=== PATIENT | male | born 1990 | race Caucasian/White ===

== ENCOUNTER 2018-11-22 22:05 | Emergency (ER) | payer OTHER ==
[~2018-11-22] VITALS: Ht 177.8 cm; Wt 102.1 kg
--- NOTE | 2018-11-22 22:05 | NUR ---
PATIENT COMES IN BY EMS GROUND WITH PD AT BEDSIDE. NOT COOPERATING AND COVERED IN VOMIT AND URINE.
[2018-11-22 22:08] VITALS: BP 132/70
--- NOTE | 2018-11-22 22:20 | NUR ---
PATIENT RESTLESS. WET PANTS REMOVED. DRY GOWN AND BLANKETS APPLIED
[2018-11-22 22:23] LABS: ABSOLUTE NEUTROPHILS 3.6 thou/uL (1.4-8.2); BASOPHILS 0.9 % (0.0-2.0); EOSINOPHILS 2.8 % (0.0-3.0); HEMATOCRIT 52.5 % (42.0-52.0); HEMOGLOBIN 17.7 gm/dL (14.0-18.0); LYMPHOCYTES 41.1 % (24.0-44.0); MCH 31.2 pg (26.0-34.0); MCHC 33.8 g/dL (28.0-37.0); MCV 92.3 fL (80.0-100.0); PLATELET COUNT 155 thou/uL (150-400); POLYS 46.2 % (36.0-66.0); RBC 5.68 mil/uL (4.50-6.00); RDW 14.9 % (10.5-14.5); WBC 7.7 thou/uL (4.0-11.0)
[2018-11-22 22:32] LABS: CALCIUM 8.6 mg/dL (8.5-10.1); CREATININE 1.2 mg/dL (0.7-1.3); POTASSIUM 3.9 mmol/L (3.5-5.1)
--- NOTE | 2018-11-22 22:51 | NUR ---
U-BAG PLACED ON PATIENT FOR URINE COLLECTION
[2018-11-22 22:57] LABS: LARGE PLATELETS OCCASIONAL
--- NOTE | 2018-11-22 22:59 | NUR ---
PATIENT TO CT WITH SECURITY
--- NOTE | 2018-11-23 00:47 | NUR ---
PATIENT ALERT TO SELF, BIRTHDATE AND SITUATION AT THIS TIME.
[2018-11-23 00:55] LABS: AMP/METHAMP Negative (Negative); BARBITURATES Negative (Negative); BENZODIAZEPINES Negative (Negative); COCAINE Negative (Negative); METHADONE Negative (Negative); OPIATES Negative (Negative); PCP Negative (Negative)
--- NOTE | 2018-11-23 02:02 | NUR ---
OFFICER AT BEDSIDE READING PATIENT HIS XIOMY RIGHTS AND ADVISING PATIENT THAT HE IS UNDER ARREST
--- NOTE | 2018-11-23 02:53 | NUR ---
THIS RN RE-ASSESSED PATIENT AT THIS TIME HE IS MORE AWAKE. PATIENT IS VERY EMOTIONAL AND TEARFUL. PATIENT STATES THAT HE WAS TRYING TO HARM HIMSELF WHEN HE DRANK MUCH HE DID AND DROVE HIS CAR.
--- NOTE | 2018-11-23 03:41 | NUR ---
PHYSICIAN RE-ENTERED ROOM TO ASSESS PATIENT AND PATIENT BECAME AGGRAVATED AND BELLIGERENT BECAUSE HE INSISTS THAT HE IS GOING INTO WITHDRAWAL AND NEEDS BENZODIAZIPINES. DOCTOR INFORMED PATIENT THAT WAS NOT NECESSARY AT THIS TIME
--- NOTE | 2018-11-23 06:54 | NUR ---
DR. NELSON AT BEDSIDE SPEAKING WITH PATIENT. PATIENT SEEMS RECEPTIVE. REPORT GIVEN TO DAYSHIFT.
[2018-11-23] MEDS ORDERED: LIBRAX PO (12:07)
[2018-11-23 12:15] VITALS: BP 106/61
[2018-11-24] MEDS ORDERED: NEURONTIN 400M400 M2 (00:53)
[2018-11-24] MEDS ORDERED: ACAMPROSATE CA333 MG PO (00:54)
[2018-11-24] MEDS ORDERED: TRAZODONE 150150 M1 PO (00:57)
[2018-11-24] MEDS ORDERED: BUPROPION XL150 MG PO (00:58)
== END 2018-11-23 12:19 | disposition left against medical advice (07) ==
LOC: ER 22:05 → EROBS 11-23 08:13 → ER 11-23 08:13
PROVIDERS: Student in an Organized Health Care Education/Training Program
DX: F10.239 Alcohol dependence with withdrawal, unspecified (principal); F10.229 Alcohol dependence with intoxication, unspecified; Y90.0 Blood alcohol level of less than 20 mg/100 ml

== ENCOUNTER 2018-11-23 21:07 | Inpatient (IN) | payer OTHER ==
[~2018-11-23] VITALS: Ht 180.3 cm; Wt 88.5 kg
[~2018-11-23 21:07] MED LIST: LIBRAX PO
[2018-11-23 21:08] VITALS: BP 119/78
[2018-11-23 21:31] LABS: ABSOLUTE NEUTROPHILS 4.5 thou/uL (1.4-8.2); BASOPHILS 0.8 % (0.0-2.0); EOSINOPHILS 0.2 % (0.0-3.0); HEMATOCRIT 49.6 % (42.0-52.0); HEMOGLOBIN 16.8 gm/dL (14.0-18.0); LYMPHOCYTES 31.3 % (24.0-44.0); MCH 31.4 pg (26.0-34.0); MCV 92.5 fL (80.0-100.0); MONOCYTES 5.1 % (1.0-8.0); PLATELET COUNT 141 thou/uL (150-400); POLYS 62.6 % (36.0-66.0); RBC 5.36 mil/uL (4.50-6.00); RDW 14.7 % (10.5-14.5); WBC 7.2 thou/uL (4.0-11.0)
[2018-11-23 21:40] LABS: CALCIUM 8.1 mg/dL (8.5-10.1); CREATININE 1.3 mg/dL (0.7-1.3); POTASSIUM 4.3 mmol/L (3.5-5.1)
[2018-11-23 21:54] LABS: ANISOCYTOSIS 1+
[2018-11-23 22:33] LABS: BE(vivo) -4.6 mmol/L (-2 to +3); HCO3 23.1 mmol/L (22.0-26.0); PCO2 52.4 mmHg (35.0-45.0); PO2 134.3 mmHg (80.0-100.0); sO2 98.3 % (92.0-98.0)
[2018-11-23 22:34] LABS: pH 7.263 (7.360-7.450)
--- NOTE | 2018-11-23 22:55 | NUR ---
ATTEMPTED TO CALL REPORT TO ICU, ICU NURSE NOT AVAILABLE, WILL GIVE REPORT TO NURSE WHEN SHE IS AVAILABLE. TO ICU WITH NURSING CIVIL CAD TECH
[2018-11-23 23:00] VITALS: BP 122/78
[2018-11-24] VITALS (20 sets, daily range): BP systolic 83–136; BP diastolic 33–64
[2018-11-24] MEDS ORDERED: NEURONTIN 400M400 M2 (00:53)
[2018-11-24] MEDS ORDERED: ACAMPROSATE CA333 MG PO (00:54)
[2018-11-24] MEDS ORDERED: TRAZODONE 150150 M1 PO (00:57)
[2018-11-24] MEDS ORDERED: BUPROPION XL150 MG PO (00:58)
[2018-11-24 01:57] LABS: BE(vivo) -5.3 mmol/L (-2 to +3); HCO3 21.7 mmol/L (22.0-26.0); PCO2 47.1 mmHg (35.0-45.0); PO2 109.2 mmHg (80.0-100.0); pH 7.281 (7.360-7.450); sO2 97.4 % (92.0-98.0)
[2018-11-24 03:46] LABS: DIRECT BILIRUBIN 0.1 mg/dL (<0.1-0.3); SALICYLATE < 2.8 mg/dL (2.8-20.0); SGOT 106 U/L (15-37); SGPT 131 U/L (30-65); TOTAL BILIRUBIN 0.5 mg/dL (<0.1-1.0); TOTAL PROTEIN 6.5 g/dL (6.4-8.2)
[2018-11-24 03:52] LABS: MAGNESIUM 2.1 mg/dL (1.8-2.4); PHOSPHORUS 4.9 mg/dL (2.5-4.9)
--- NOTE | 2018-11-24 07:56 | NUR ---
PT SLEEPING OFF AND ON. AWAKENS WITH TACTILE STIMULI. ORIENTED X4. CIGWA 3. DENIES INTENT TO HARM SELF. REMAINS IN ROOM WITH SITTER. MONITOR-ST. IV FLUIDS INFUSING. NEEDS 02 WHEN SLEEPING. 2L. MONITOR ETCO STARTED 45-51 WHILE SLEEPING. WHEN AWAKE RUNNING IN 40'S. INCONTINENT OF URINE, KIM PO FLUIDS AND DIET. DENIES NAUSEA, NO VOMITING. CONT TO MONITOR.
[2018-11-24 09:38] LABS: AMP/METHAMP Negative (Negative); BARBITURATES Negative (Negative); BENZODIAZEPINES Negative (Negative); COCAINE Negative (Negative); METHADONE Negative (Negative); OPIATES Negative (Negative); PCP Negative (Negative)
--- NOTE | 2018-11-24 16:51 | NUR ---
PT ADMITTED WITH ETOH INTOXICATION. PT LIVES WITH MOTHER. ADMITS TO DRINKING HEAVILY AND PAST INPT AT [facility]. SEEN BY PSYCH WHO RECOMMENDS INPT WHEN MEDICALLY STABLE.
--- NOTE | 2018-11-24 17:38 | NUR ---
CIWA Q4H, PRN ATIVAN GIVEN AND EFFECTIVE. 1:1 SITTER REMAINS AT BEDSIDE. PSYCHH HAS SEEN PT, POC TO ADMIT TO INPT PSYSCH WHEN MEDICALLY STABLE.
[2018-11-25] VITALS (26 sets, daily range): BP systolic 95–136; BP diastolic 46–88
[2018-11-25 04:44] LABS: CALCIUM 8.6 mg/dL (8.5-10.1); CREATININE 0.9 mg/dL (0.7-1.3)
[2018-11-25 05:00] LABS: ABSOLUTE NEUTROPHILS 2.5 thou/uL (1.4-8.2); BASOPHILS 0.6 % (0.0-2.0); EOSINOPHILS 4.3 % (0.0-3.0); HEMATOCRIT 43.7 % (42.0-52.0); LYMPHOCYTES 39.8 % (24.0-44.0); MCH 30.3 pg (26.0-34.0); MCHC 32.9 g/dL (28.0-37.0); MCV 92.2 fL (80.0-100.0); MONOCYTES 7.3 % (1.0-8.0); PLATELET COUNT 89 thou/uL (150-400); RBC 4.74 mil/uL (4.50-6.00); RDW 14.3 % (10.5-14.5); WBC 5.1 thou/uL (4.0-11.0)
[2018-11-25 05:02] LABS: HEMOGLOBIN 14.4 gm/dL (14.0-18.0)
--- NOTE | 2018-11-25 06:44 | NUR ---
ASSUMED PT CARE AT 1900. VSS. PT A&OX4 AT START OF SHIFT AND SLEPT THROUGH THE NIGHT. ASSESSMENTS AND MEDS GIVEN ARE DOCUMENTED. CIWA WAS DONE Q4, SCORED 5,3,4 AT 2000, 0000,& 0400 RESPECTIVELY. PRN 1MG OF PO LORAZEPAM ADMINISTERED. PT HAD 475ML OUTPUT. FIELD STICK IV ACCESS GOT KINKED, NEW IV STARTED ON RIGHT FOREARM.PT WS STABLE OVER NIGHT. NO COMPLAINTS OF DISTRESS OR DISCOMFORT. NO RESPIRATORY DISTRESS NOTED. WILL CONTINUE TO MONITOR PER POC.
--- NOTE | 2018-11-25 17:57 | NUR ---
VSS REMAINS NSR, LUNGS CLEAR ,RA SAT IS 95%. UP IN ROOM TO COMMODE, TOLERATED WELL. PT CALM NOT TREMULOUS, NO DIAPHORESIS, NO HALLUCINATIONS, CIWA SCORE TODAY 2. REMAINS ON 1-1 FOR SUICIDAL IDEATION PRECAUTIONS. NO VERBAL WORDS TODAY WXPRESSED TODAY BY PT. WILL CONTINUE TO MONITER AND CARE FOR PT PER PLAN OF CARE
[2018-11-26] VITALS (17 sets, daily range): BP systolic 68–144; BP diastolic 37–77
--- NOTE | 2018-11-26 04:19 | NUR ---
ASSUMED PT CARE AT 1900. PT A&0X4. CALM AND ALERT. CIWA HAS BEEN BETWEEN 1-2 FOR ME DURING THIS SHIFT. FREQUENCY OF CIWA CHANGED TO Q8 BASED ON SCORES. PT HAS BEEN SR, TO SA ON THE MONITOR. HE ALSO GETS SB AT TIMES WITH DEEP SLEEP. LOWEST HR DURING THIS SHIFT WAS 47. PT HR RANGED FROM 47- UPPER 80s. PT ALSO HAD A COUPLE EPISODES OF LOB BP WITH MAP RANGING FROM 58 TO 64 BUT THEN HIS BP WOULD COME BACK UP. AT THIS LOWEST BP; (93/41) 300ML BOLUS WAS GIVEN(PER NUCLEAR PHYSICIST'S DIRECTION) AND BP CAME BACK UP TO 90/54 AFTER 30 MINUTES.(SEE CHART CRAPHICS FOR PARAMETERS ALARM EVENT REPORT). SINCE THEN BP HAS BEEN STABLE. PT STILL HAS NS GOING AT 100. PT HAD ABOUT 700ML OUT PER URINAL. PT IS ABLE TO TRANSFER TO THE FLOOR ON A MST ADMISSION STATUS SHOULD ICU BED BE NEEDED. WILL CONTINUE TO MONITOR PER POC.
[2018-11-26 05:29] LABS: CALCIUM 8.4 mg/dL (8.5-10.1)
--- NOTE | 2018-11-26 15:50 | NUR ---
REPORT GIVEN TO ONCOMING RN FOR CONTINUATION OF CARE. HE HAS BEEN CALM AND COOPERATIVE TODAY. VITAL SIGNS AND ASSESSMENTS DOCUMENTED. PLAN OF CARE IS TO CONINUE TO MONITOR PATIENT STATUS UNTIL TRANSFER/DISCHARGE.
--- NOTE | 2018-11-26 19:01 | NUR ---
ASSUMED CARE AT 15:45. PATIENT CALM, ORIENTED, & APPROPRIATE THROUGH SHIFT. DENIES ANY PAIN, SOA, OR ADDITIONAL NEEDS. ABLE TO GIVE SELF CARE BATH. WATCHING TV FOR MOST OF SHIFT.
--- NOTE | 2018-11-27 01:36 | NUR ---
ASSUMED CARE OF PT AT 1900. PT CALM AND APPROPRIATE THROUGHOUT THE SHIFT. PT GIVEN NIGHT MEDS, INCLUDING TRAZODONE, SHORTLY AFTER 1999. AROUND 2300, PT WAS RESTLESS AND UNABLE TO SLEEP; PT REQUESTED SOMETHING MORE TO SLEEP. ATIVAN GIVEN X1. DID NOT SEEM TO HELP CALM PT INITIALLY, BUT PT EVENTUALLY FELL ASLEEP ABOUT 45 MIN AGO. PT HAS BEEN PLEASANT AND ENGAGES IN CONVERSATION APPROPRIATELY. SAFETY MAINTAINED. SITTER IN ROOM. WILL CONTINUE TO MONITOR PT CLOSELY.
--- NOTE | 2018-11-27 06:30 | NUR ---
ACCEPTED PT IN TRANSFER PER WHEELCHAIR TO ROOM 423. PT ALERT AND ORIENTED X4, CALM AND COOPERATIVE. DENIES PAIN, DYPSNEA OR ANXIETY. NO S/S ETOH WITHDRAWAL. SETTLED IN BED WITH SITTER AT BEDSIDE.
--- NOTE | 2018-11-27 06:41 | NUR ---
NO CHANGE IN CONDITION SINCE LAST NOTE. PT TX'D TO M/S UNIT AT 0620 THIS AM. REPORT GIVEN TO VINEET AT 0550. PT WAS TAKEN TO NEW ROOM BY HIS NIGHT SENIOR BI ARCHITECT/SITTER. MOTHER NOTIFIED.
[2018-11-27 11:51] VITALS: BP 119/73
--- NOTE | 2018-11-27 14:51 | NUR ---
ASSUMED CARE OF PT AT 0700. ASSESSMENT COMPLETED AT BEGINNING OF SHIFT, CHARTED. A&O,X4. PT C/O FEELING ANXIOUS AND OVERWHELMED, MEDS GIVEN ORDERED. DENIES PAIN. SITTER AT BEDSIDE. PT MEDICALLY STABLE. WILL CONTINUE TO FREQUENTLY MONITOR.
--- NOTE | 2018-11-27 15:41 | NUR ---
CM MET WITH PT AND MOTHER AT BEDSIDE THIS DAY. PT INDICATED HE WOULD BE ABLE TO GET A SCHOLARSHIP TO GO TO A FACILITY CALLED [facility] The Editorialist [facility] STATE THEIR [place] LOCATION FOR A DUAL DX. 30 DAY PROGRAM WITH A 90DAY IOP. THEIR SUPERVISOR BAKING IS [facility] [address]. CM CONVEYED THIS INFO TO DR. CHOUDHURY TO SEE IF SHE FELT THIS WAS A VIABLE OPTION FOR PT. CM TO FOLLOW INDICATED WITH DC PLANNING.
[2018-11-27 15:59] VITALS: BP 103/81
--- NOTE | 2018-11-27 16:02 | NUR ---
DR. CHOUDHURY INDICATED THAT DISCHARGE TO [facility] WOULD NOT BE APPROPRIATE OR ADVISABLE AT THIS TIME. SHE IS STILL RECOMMENDING INPATIENT PSYC STAY LOCALLY. TYLER CALLED [facility] AND THEY DON'T HAVE ANY BEDS, [facility] NO BEDS, AND [facility]. CM TO SEND REFERRALS TO ALL. TYLER NOTIFIED PT. MC TO FOLLOW INDICATED WITH DC PLANNING.
[2018-11-27 19:03] VITALS: BP 107/64
--- NOTE | 2018-11-27 22:22 | NUR ---
ASSESSMENT COMPLETE PER App [employer]. PT ROOM CLEARED PER SI PROTOCL, 1:1 [address]UES TO BE IN PLACE. PT DENIES SI THOUGHTS OR INTENTIONS AT THIS TIME. PT VERBALIZES FEELINGS OF ANXIOUSNESS. PT PACING ROOM, RACED SPEECH, MILDLY DIAPHORETIC. MEDICATED ADMINISTERED PER ORDERS FOR ANXIETY, PENDING EFFECTIVENESS. PT EXPRESSED CONCERNS OVER WHERE PT WILL GO AFTER D/C FROM HOSPITAL. SUPPORT PROVIDED. PT CONTINUES TO BE MONITORED
[2018-11-28 07:59] VITALS: BP 105/55
--- NOTE | 2018-11-28 11:10 | NUR ---
ASSUMED CARE OF PT AT 0700. ASSESSMENT COMPLETED AND CHARTED. A&0,X4. REPORTS FEELING ANXIOUS AND FRUSTRATED ABOUT TRANSFERING TO FACILITY. MEDS GIVEN TO CONTROL ANXIETY ORDERED. STATES NO DESIRES FOR SELF HARM AT THIS TIME. SITTER 1:1 AT BEDSIDE. DENIES PAIN, N/V/D. SKIN INTACT. CLEAR LUNG SOUNDS. REGULAR HEART SOUNDS, NO EDEMA. LAST BM YESTERDAY. WILL CONTINUE TO MONITOR.
--- NOTE | 2018-11-28 12:57 | NUR ---
[facility] indicated they were not able to accept pt. research is full sm to continue to try [facility] and look to send referral elsewhere.
[2018-11-28 16:18] VITALS: BP 111/62
[2018-11-28 20:11] VITALS: BP 104/60
--- NOTE | 2018-11-29 01:55 | NUR ---
ASSUMED CARE OF PT AT 1900. PT IS FRUSTRATED WITH HAVING TO STAY IN THE HOSPITAL UNTIL PLACEMENT IS FOUND. 1:1 SITTER IN ROOM. NO C/O PAIN. WILL CONTINUE TO MONITOR.
[2018-11-29 08:15] VITALS: BP 98/50
--- NOTE | 2018-11-29 12:42 | NUR ---
CM CALLED [facility], [facility] TODAY. [facility] DIDN'T HAVE BEDS AT TIME OF CALL BUT INDICATED THEY WERE ANTICIPATING DISCHARGES. CM FAXED REFERRALS TO BOTH. CM WILL FOLLOW UP.
--- NOTE | 2018-11-29 16:09 | NUR ---
CM SPOKE WITH [facility]TA[facility] AT [facility] AND THEY HAVE BEDS AND ARE STILL REVIEWING REFERRALS. CM REFAXED TO THEM FOR REVIEW. CM FOLLOWED UP WITH [facility] AND THEY ARE REVIEWING REFERRALS WELL. CM COMPLETED TRANSFER FORM AND [facility] FORM AND THEY WERE PLACED ON THE CHART. AWAITING PLACEMENT.
--- NOTE | 2018-11-29 18:58 | NUR ---
ASSUMED PT CARE AT 0700H. PT A&O X4. PT HAS NO S/S OF DISTRESS. PT DENIES THOUGHTS OF HARMING SELF NOR OTHERS. PT CONCERN ABOUT BEING DC TO FACILITY. PT COOPERATIVE WITH MED [facility]. PT CONTINUES TO BE MONITORED BY 1 ON SITTER.
--- NOTE | 2018-11-30 07:30 | NUR ---
assumed pt care 1900. pt alert and oriented x4. PT UP AD KYRIE IN ROOM. SITTER PRESENT. PT PLEASASNT, APPROPRIAPTE BEHAVIOR. SI PRECAUTIONS. VSS. PT SLEPT WELL THROUGHOUT NIGHT.
--- NOTE | 2018-11-30 10:44 | NUR ---
DR. CHUODHURY INDICATED THAT SHE HAD REACHED OUT TO [facility]TA[facility] YESTERDAY EVENING. TYLER CALLED THEM THIS AM AND INDICATED THAT THEY DIDN'T HAVE ANY BEDS BUT THAT PT IS ON THEIR BOARD AND WILL CALL BACK SHOULD ANYONE DISHCARGE. TYLER CALLED [facility] NUMBER AND AWAITING RESPONSE. TYLER T OFOLLOW UP WITH [facility].
--- NOTE | 2018-11-30 14:57 | NUR ---
Nutrition: pt admitted with ETOH intoxication, SI, depression. Seen for LOS. Pt reports good appetite, stable weights, knows how to order meals. Plan transfer to inpatient psych facility. Low nutrition risk.
--- NOTE | 2018-11-30 18:29 | NUR ---
DC ORDERS RECIEVED, SCRIPTS, F/U APPOINT. AND DC INSTRUCTIONS REVIEWED WITH PT, IV REMOVED FROM L AC, PT ESCORTED TO MAIN ENTRANCE BY VOLUNTEER.
--- NOTE | 2018-12-01 03:38 | NUR ---
Assumed care of pt at 1900. Pt has 1:1 sitter in room. Appropriate behavior. Pt pleasant. States he is waiting to be admitted to inpatient psych when bed available. No c/o pain. Will continue to monitor.
[2018-12-01 04:45] VITALS: BP 86/35
[2018-12-01 07:34] VITALS: BP 104/50
--- NOTE | 2018-12-01 10:03 | NUR ---
ASSUMED CARE AT 0700, SHIFT ASSESSMENT DONE, MEDS GIVEN, VSS. DENIES ANY PAIN, CONCERNS AT THIS TIME. SITTER IN ROOM, RESTING IN RECLINING CHAIR THIS AM. WILL CONTINUE TO ASSESS AND ASSIST WITH ADLs NEEDED.
[2018-12-01 15:00] VITALS: BP 108/58
[2018-12-01 15:31] VITALS: BP 104/50
--- NOTE | 2018-12-01 16:12 | NUR ---
DISCHARGE ORDERS RECEIVED, DR CHOUDHURY AND DR CHAMBERLAIN WROTE ORDERS. PATIENT HAD NO IV'S IN [place]. DISCHARGE PAPER WORKS GIVEN. PATIENT WAS TRANSPORTED DOWN TO [facility] ([facility] [place] AT THE [facility] WITH THIS NURSE.
--- NOTE | 2018-12-01 16:31 | NUR ---
PT IS TO DISCHARGE HOME THIS DAY. AFTER A WEEK OF TRYING TO FIND INPATIENT PSYC PLACEMENT PHYSICIAN INDICATED THAT PT WOULD BE APPROPRIATE TO DISCHARGE HOME AND GO TO [facility] FOR REHAB AND PROGRAMING THERE. PT'S MOTHER IS AWARE AND AGREEABLE WITH PLAN. THEY ARE ARRANGING TRANSPORTATION FOR PT IN THE NEAR FUTURE. CM PROVIDED CONTACT NUMBER FOR REDISCOVER FOR PT TO FOLLOW UP WITH. NO OTHER CM INTERVENTION INDICATED AT THIS TIME. CASE CLOSED.
[2018-12-01 16:34] VITALS: BP 104/50
== END 2018-12-01 16:00 | disposition home or self-care (01) | DRG 897 ==
LOC: ER 21:07 → EROBS 22:23 → 4E 22:23 → ICU 22:23 → 4E 11-27 06:55
PROVIDERS: Nurse Practitioner Acute Care; Student in an Organized Health Care Education/Training Program; ADMIT Hospitalist
DX: F10.129 Alcohol abuse with intoxication, unspecified (principal); F17.210 Nicotine dependence, cigarettes, uncomplicated; F32.9 Major depressive disorder, single episode, unspecified; F39 Unspecified mood [affective] disorder; Z79.899 Other long term (current) drug therapy; Z28.21 Immunization not carried out because of patient refusal
CPT/HCPCS: 10078; 10783